=== PATIENT | male | born 1995 | race Caucasian/White ===

== ENCOUNTER 2016-11-30 09:28 | Emergency (ER) | payer OTHER ==
--- NOTE | 2016-11-30 09:30 | PDOC ---
History of Present Illness - General Chief Complaint: Chest Pain Stated Complaint: right sided sharp chest pain Time Seen by Provider: 11/30/16 09:29 History Source: Patient Exam Limitations: No Limitations - History of Present Illness Initial Comments: 11/30/16 09:29 This is an otherwise healthy 21 yo M presenting to the ER with a complaint of right chest pain Pt states his symptoms began 9 days ago He was playing in the park with his friends, she dove to catch a ball and struck his chest Since then, he has had right chest pain which has worsened No fevers No chills no cough Pain is described as sharp, rated 7-8/10, with radiation to the right side of his thorax Pain is worse with certain movements, such as reaching with his arm behind him PMH: denies PSH: denies Meds: denies ALL: dust, pollen, NKDA Social: social alcohol use, denies drugs or cigarettes GENERAL/CONSTITUTIONAL: No: fever, chills, weakness, loss of appetite. HEAD, EYES, EARS, NOSE AND THROAT: No: change in vision, ear pain, discharge, sore throat, throat swelling. CARDIOVASCULAR: Yes: chest wall pain No: lightheadedness, palpitations, syncope RESPIRATORY: No: cough, shortness of breath, wheezing, hemoptysis, stridor. GASTROINTESTINAL: No: nausea, vomiting, diarrhea, abdominal cramping, rectal bleeding, constipation. GENITOURINARY: No: dysuria, hematuria, frequency, urgency, flank pain. MUSCULOSKELETAL: No: back pain, neck pain, joint pain, muscle swelling or pain SKIN AND BREASTS: No: lesions, pallor, rash or easy bruising. NEUROLOGIC: No: headache, vertigo, paresthesias, weakness ENDOCRINE: No: unexplained weight gain or loss HEMATOLOGIC/LYMPHATIC: No: anemia, easy bleeding, swelling nodes. GENERAL: The patient is in no acute distress. HEAD: Normal with no signs of trauma. EYES: PERRLA, EOMI, sclera anicteric, conjunctiva clear. ENT: Ears normal, nares patent, oropharynx clear without exudates. Moist mucous membranes. NECK: Normal range of motion, supple without lymphadenopathy, JVD, or masses. LUNGS: bilateral clear breath sounds HEART:Regular rate and rhythm, normal S1 and S2 without murmur, rub or gallop. ABDOMEN: Soft, nontender, normoactive bowel sounds. No guarding, no rebound. No masses palpable. EXTREMITIES: Normal range of motion, no edema. No clubbing or cyanosis. No erythema, or tenderness. NEUROLOGICAL: Cranial nerves II through XII grossly intact. Normal speech. No focal neurological deficits. MUSCULOSKELETAL: (+) point tenderness right chest wall SKIN: No bruising, no erythema, no lacerations, multiple tattooes 11/30/16 09:37 Past History - Past Medical History Allergies/Adverse Reactions: Allergies Allergy/AdvReac Type Severity Reaction Status Date / Time No Known Allergies Allergy Verified 11/30/16 09:30 Home Medications: Ambulatory Orders Lidocaine 5% Patch [Lidoderm Patch -] 1 patch TP DAILY PRN #30 patch 11/30/16 Methocarbamol [Robaxin -] 500 mg PO TID PRN #21 tablet 11/30/16 Naproxen [Naprosyn -] 500 mg PO BID PRN #14 tablet 11/30/16 - Psycho/Social/Smoking Cessation Hx Anxiety: No Suicidal Ideation: No Smoking Status: No Smoking History: Never smoked Have you smoked in the past 12 months: No Number of Cigarettes Smoked Daily: 0 Hx Alcohol Use: No Substance Use Type: None *Physical Exam - Vital Signs Last Vital Signs Temp Pulse Resp BP Pulse Ox 98.8 F 78 18 124/79 99 11/30/16 09:29 11/30/16 09:29 11/30/16 09:29 11/30/16 09:29 11/30/16 09:29 ED Treatment Course - RADIOLOGY Radiology Studies Ordered: Category Date Time Status CHEST PA & LAT [RAD] Stat Radiology 11/30/16 09:36 Completed RIBS RIGHT SIDE [RAD] Stat Radiology 11/30/16 09:36 Completed - Medications Given in the ED: ED Medications Discontinued Medications Generic Name Dose Route Start Last Admin Trade Name Freq PRN Reason Stop Dose Admin Ibuprofen 600 mg 11/30/16 09:36 11/30/16 09:45 Motrin - PO 11/30/16 09:37 600 mg ONCE ONE Administration Medical Decision Making - Medical Decision Making 11/30/16 09:40 Pt presents with 1 week chest pain which is worse with movement s/p trauma symptoms most consistent with musculoskeletal pain Given no risk factors, unlikely ACS PERC negative Will do CXR r/o pneumothorax, pleural effusion Will give motrin 11/30/16 09:41 *DC/Admit/Observation/Transfer Diagnosis at time of Disposition: Chest wall pain - Discharge Dispostion Disposition: HOME Condition at time of disposition: Stable Admit: No - Prescriptions Prescriptions: Lidocaine 5% Patch [Lidoderm Patch -] 1 patch TP DAILY PRN #30 patch PRN Reason: Pain Naproxen [Naprosyn -] 500 mg PO BID PRN #14 tablet PRN Reason: Pain Methocarbamol [Robaxin -] 500 mg PO TID PRN #21 tablet PRN Reason: Pain - Patient Instructions Printed Discharge Instructions: DI for Atypical Chest Pain Additional Instructions: Chinmay Thank you for coming in to the ER today Please take Motrin 600mg three times per day Please also take Robaxin as prescribed as needed for pain Please follow up with your primary care physician within 1 week Return to the ER for any other concerns or complaints - Post Discharge Activity Work/School Note: Back to Work
[2016-11-30] MEDS ORDERED: IBUPROFEN 600 MG TABLET (FP) PO ONE ×2 (09:36→09:43)
[2016-11-30 09:38] VITALS: BP 124/79; PULSE 78; TEMP 98.8; BMI 28.7
== END 2016-11-30 11:07 | disposition home or self-care (01) ==
LOC: FER 09:28
DX: R07.89 Other chest pain (principal); W21.03XA Struck by baseball, initial encounter; Y93.64 Activity, baseball; Y92.830 Public park as the place of occurrence of the external cause
CPT/HCPCS: 71020-TC; 71101-TC-RT; 99281-25

== ENCOUNTER 2017-04-25 18:43 | Emergency (ER) | payer OTHER ==
[2017-04-25 19:02] VITALS: BP 147/89; PULSE 78; TEMP 98.7; BMI 28.7
--- NOTE | 2017-04-25 19:18 | PDOC ---
Attending Attestation - Resident Resident Name: Maynor Connolly - ED Attending Attestation I have performed the following: I have examined & evaluated the patient, The case was reviewed & discussed with the resident, I agree w/resident's findings & plan, Exceptions are as noted - HPI HPI: 04/25/17 19:20 21 yo male p/w weakness anfter spening the whole outside playing baseball. He played a couple double headers today and yesterday CC he's having body cramps -no significant PMH plan IVF ,labs ,reassess - Physicial Exam PE: 04/25/17 21:08 21 yo Male in no acute distress, facial sunburn neck supple lungs cta b/l cvs [id number] abd nontender,no rebound extremities from,no cellulitis,no rash neuro axox3,no focal neuro deficits - Medical Decision Making 04/26/17 01:23 pt received IVF and had repeat chemistries which were much improved,pt discharged home
[2017-04-25] MEDS ORDERED: SODIUM CHLORIDE 1,000 ML IV STA ×2 (19:20→20:22)
--- NOTE | 2017-04-25 19:33 | PDOC ---
History of Present Illness - General Chief Complaint: Pain, Acute Stated Complaint: BODY CRAMP. Time Seen by Provider: 04/25/17 19:11 History Source: Patient Exam Limitations: No Limitations - History of Present Illness Initial Comments: 04/25/17 19:21 Patient is a previous healthy 21M who is presenting to the ED today complaining of cramping pain in his back, legs, arms and abdomen. He says that yesterday he played in a baseball double header where he drank alcohol. He had a second double header of baseball today. He denies drinking alcohol today. The high today in [place] was 88F. He denies fevers, chills, nausea, vomiting, traumatic injury, and sick contacts. He denies chest pain. He endorses shortness of breath , but only when he's having a muscle cramp. Past History - Past Medical History Allergies/Adverse Reactions: Allergies Allergy/AdvReac Type Severity Reaction Status Date / Time No Known Allergies Allergy Verified 04/25/17 19:10 Home Medications: Ambulatory Orders NK [No Known Home Medication] 04/25/17 - Suicide/Smoking/Psychosocial Hx Smoking Status: No Smoking History: Never smoked Have you smoked in the past 12 months: No Number of Cigarettes Smoked Daily: 0 Hx Alcohol Use: No Drug/Substance Use Hx: No Substance Use Type: None Review of Systems - Review of Systems Comments:: 04/25/17 19:49 GENERAL/CONSTITUTIONAL: No fever or chills. HEAD, EYES, EARS, NOSE AND THROAT: No change in vision. No sore throat. CARDIOVASCULAR: No chest pain or shortness of breath RESPIRATORY: No cough, wheezing, or hemoptysis. GASTROINTESTINAL: No nausea, vomiting, diarrhea or constipation. GENITOURINARY: No dysuria, frequency, or change in urination. MUSCULOSKELETAL: Positive for cramping pain in legs, arms, back and stomach SKIN: No rash NEUROLOGIC: No headache, vertigo, loss of consciousness, or change in strength/ sensation. ENDOCRINE: No increased thirst. No abnormal weight change HEMATOLOGIC/LYMPHATIC: No anemia, easy bleeding, or history of blood clots. ALLERGIC/IMMUNOLOGIC: No hives or skin allergy. *Physical Exam - Vital Signs Last Vital Signs Temp Pulse Resp BP Pulse Ox 98.7 F 78 18 147/89 100 04/25/17 18:56 04/25/17 18:56 04/25/17 18:56 04/25/17 18:56 04/25/17 19:04 - Physical Exam Comments: 04/25/17 19:50 GENERAL: Awake, alert, and fully oriented, in no acute distress, sunburned face HEAD: No signs of trauma, normocephalic, atraumatic EYES: PERRLA, EOMI, sclera anicteric, conjunctiva clear ENT: Auricles normal inspection, hearing grossly normal, nares patent, oropharynx clear without exudates. Dry mucosa NECK: Normal ROM, supple, no lymphadenopathy, JVD, or masses LUNGS: No distress, speaks full sentences, clear to auscultation bilaterally HEART: Regular rate and rhythm, normal S1 and S2, no murmurs, rubs or gallops, peripheral pulses normal and equal bilaterally. ABDOMEN: Soft, nontender, normoactive bowel sounds. No guarding, no rebound. No masses EXTREMITIES: Normal inspection, Normal range of motion, no edema. No clubbing or cyanosis. NEUROLOGICAL: Cranial nerves II through XII grossly intact. Normal speech, normal gait, no focal sensorimotor deficits SKIN: Warm, Dry, no rashes or lesions noted. ED Treatment Course - LABORATORY CBC & Chemistry Diagram: 04/25/17 21:30 04/25/17 21:30 Medical Decision Making - Medical Decision Making 04/25/17 19:51 21M with no significant medical history here today complaining of body aches. Given physical activity, weather, and alcohol, believe this is likely dehydration causing muscle cramps. Vital signs stable and normal. Will treat with 1L NS. Will evaluate with CBC and CMP. Will re-evaluate after fluids are in. 04/25/17 20:43 Laboratory Tests 04/25/17 04/25/17 19:45 19:45 WBC 15.9 H D Hgb 17.9 H D Hct 52.4 H Plt Count 227 BUN 23 H D Creatinine 1.4 H D Total Bilirubin 1.2 H D AST 41 H D Alkaline Phosphatase 128 H D Total Protein 9.2 H Albumin 5.8 H D CBC shows white count of 16 with hgb of 18. CMP shows elevated Cr and BUN, with elevated tbili, ast, alk phos, total protein and albumin. Believe this is due to volume contraction. Will give 2L and redraw labs. 04/25/17 22:17 Laboratory Tests 04/25/17 04/25/17 21:30 21:30 WBC 14.6 H Hgb 16.3 Hct 47.8 Plt Count 190 BUN 20 H Creatinine 1.1 D Labs improved. Patient continues to feel better. Alert, ambulatory and improved on discharge. Given return precautions, patient expressed understanding. Will discharge with PCP follow up. *DC/Admit/Observation/Transfer Diagnosis at time of Disposition: Dehydration - Discharge Dispostion Disposition: HOME Condition at time of disposition: Good Admit: No - Post Discharge Activity Forms/Work/School Notes: Back to Work
[2017-04-25 20:04] LABS: MCH 27.7 pg (25.7-33.7); MCHC 34.1 g/dl (32.0-35.9); MEAN CELL VOLUME 81.3 fl (80-96); PLATELET COUNT 227 K/MM3 (134-434); RDW 13.6 % (11.9-15.9); WHITE BLOOD COUNT 15.9 K/mm3 (4.0-10.0)
[2017-04-25 20:17] LABS: ALBUMIN 5.8 g/dl (3.4-5.0); ANION GAP 11 (8-16); BILIRUBIN,TOTAL 1.2 mg/dL (0.2-1.0); CALCIUM 10.5 mg/dL (8.5-10.1); CO2 24 mmol/L (21-32); CREATININE 1.4 mg/dL (0.7-1.3); GLUCOSE,RANDOM 100 mg/dL (74-106); SGPT/ALT 65 U/L (12-78); TOT PROT 9.2 g/dl (6.4-8.2)
[2017-04-25 20:18] LABS: ALK PHOS 128 U/L (45-117)
[2017-04-25 20:19] LABS: SGOT/AST 41 U/L (15-37)
[2017-04-25 22:03] LABS: ALBUMIN 4.7 g/dl (3.4-5.0); ANION GAP 4 (8-16); CALCIUM 8.7 mg/dL (8.5-10.1); CO2 27 mmol/L (21-32); CREATININE 1.1 mg/dL (0.7-1.3); GLUCOSE,RANDOM 103 mg/dL (74-106); SGOT/AST 36 U/L (15-37); SGPT/ALT 55 U/L (12-78); TOT PROT 7.6 g/dl (6.4-8.2)
[2017-04-25 22:05] LABS: MCH 28.1 pg (25.7-33.7); MCHC 34.1 g/dl (32.0-35.9); MEAN CELL VOLUME 82.4 fl (80-96); MEAN PLT VOLUME 10.5 fl (7.5-11.1); PLATELET COUNT 190 K/MM3 (134-434); RDW 13.5 % (11.9-15.9); WHITE BLOOD COUNT 14.6 K/mm3 (4.0-10.0)
[2017-04-25 22:13] LABS: ALK PHOS 107 U/L (45-117)
== END 2017-04-25 22:25 | disposition home or self-care (01) ==
LOC: JER 18:43
PROC: 3E0337Z Introduction of Electrolytic and Water Balance Substance into Peripheral Vein, Percutaneous Approach (ICD-10-PCS; principal; 2017-04-25)
DX: E86.0 Dehydration (principal)
CPT/HCPCS: 36415; 80053; 85027; 96360; 96361; 99282-25

== ENCOUNTER 2017-06-24 21:39 | Inpatient (IN) | payer OTHER ==
[2017-06-24] MEDS ORDERED: SODIUM CHLORIDE 1,000 ML IV STA (23:05)
[2017-06-24] MEDS ORDERED: KETOROLAC TROMETHAMINE 30 MG/1 ML VIAL IVPUSH ONE (23:05)
--- NOTE | 2017-06-24 23:12 | PDOC ---
History of Present Illness - General Chief Complaint: Pain, Acute Stated Complaint: JAW PAIN Time Seen by Provider: 06/24/17 21:54 - History of Present Illness Initial Comments: This otherwise healthy 21-year-old man presents with a few day history of worsening pain in the posterior portion of his lower left jaw and sore throat. Recent history notable for removal of all of his wisdom teeth (performed on 06/07). Patient states that procedure went well and he took course of penicillin as prescribed for a few days after the procedure but stopped when he felt well. When the patient began to have pain and swelling in the side of his lower jaw a few days ago, he began taking the penicillin again. Tonight, the patient had difficulty opening his jaw secondary to pain but denies drooling. He has pain with swallowing liquids but has been able to drink fluids today . He has taken ibuprofen for pain this evening without significant relief Patient denies recent exposure to any person with strep throat. No recent history of strep pharyngitis Patient describes previous history of sore throat which resulted in swelling in his throat a few years ago. He was seen in ER in [facility]. He was given antibiotics and pain medication and discharged. He has no history of Peritonsillar abscess requiring drainage. Past History - Past Medical History Allergies/Adverse Reactions: Allergies Allergy/AdvReac Type Severity Reaction Status Date / Time No Known Allergies Allergy Verified 04/25/17 19:10 Home Medications: Ambulatory Orders Ibuprofen 600 mg PO PRN PRN 06/24/17 Penicillin V Potassium [Pen Vee K -] 500 mg PO QID 06/24/17 COPD: No Other medical history: DENIES - Suicide/Smoking/Psychosocial Hx Smoking Status: No Smoking History: Never smoked Have you smoked in the past 12 months: No Number of Cigarettes Smoked Daily: 0 Hx Alcohol Use: No Drug/Substance Use Hx: No Substance Use Type: None Review of Systems - Review of Systems Able to Perform ROS?: Yes Comments:: 12 point review of systems is negative except for what is noted in the history of present illness *Physical Exam - Vital Signs Last Vital Signs Temp Pulse Resp BP Pulse Ox 99.2 F 77 16 130/75 99 06/24/17 21:45 06/24/17 21:45 06/24/17 21:45 06/24/17 21:45 06/24/17 21:45 - Physical Exam Comments: GENERAL: Young adult male, in mild distress secondary to left-sided jaw/throat pain. Speaking in full sentences; no respiratory distress Vital signs as noted HEAD: Normal with no signs of trauma. EYES: PERRLA, EOMI, sclera anicteric, conjunctiva clear. ENT: Ears normal, nares patent, oropharynx/gingival or buccal surfaces not visualized secondary to severe trismus NECK: Normal range of motion, supple without lymphadenopathy, JVD, Tender 3 cm x 3 cm nonfluctuant mass just below the angle of jaw , left side LUNGS: Breath sounds equal, clear to auscultation bilaterally. No wheezes, and no crackles. HEART:Regular rate and rhythm, normal S1 and S2 without murmur, rub or gallop. ABDOMEN:.normal bowel sounds No guarding,tenderness or rebound.No masses No distention. EXTREMITIES: Normal range of motion, no edema. No clubbing or cyanosis. No erythema, or tenderness. NEUROLOGICAL: Cranial nerves II through XII grossly intact. Normal speech. No focal neurological deficits. MUSCULOSKELETAL: Back non-tender to palpation, no CVA tenderness SKIN: Warm, Dry, normal turgor, no rashes or lesions noted. 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 There is overlying soft tissue edema which may represent cellulitis involving the retropharyngeal space. 06/25/17 03:14 Patient has received 3 g of Unasyn IV. He had some relief of pain with 30 mg of Toradol IV initially ,with later recurrence of pain. Patient given 1 mg Dilaudid IV. Because of possibility of abscess versus cellulitis of the left Parapharyngeal area, patient's severe trismus and difficulty in PO hydration, the patient will be admitted for IV antibiotics, IV fluids and analgesia. [facility] and case discussed with JERONIMO Hinojosa. Patient will be admitted observation here at [facility]. If patient needs evaluation by ENT/oral maxillofacial surgery , consultation will be obtained here . If this is not possible, he can be transferred to facility where these services are available. Results and plan discussed with the patient and his mother, who agree to plan. *DC/Admit/Observation/Transfer Diagnosis at time of Disposition: Parapharyngeal abscess - Discharge Dispostion Condition at time of disposition: Stable Admit: Yes - Referrals - Patient Instructions - Post Discharge Activity
[2017-06-24] MEDS ORDERED: KETOROLAC TROMETHAMINE 30 MG/1 ML VIAL ONE (23:20)
[2017-06-24 23:30] LABS: BASOPHIL 2.7 % (0-2.0); EOSINOPHIL 0.3 % (0-4.5); MCH 28.5 pg (25.7-33.7); MCHC 34.6 g/dl (32.0-35.9); MEAN CELL VOLUME 82.4 fl (80-96); NEUTROPHILS 80.5 % (42.8-82.8); PLATELET COUNT 229 K/MM3 (134-434); RDW 12.7 % (11.9-15.9); WHITE BLOOD COUNT 17.7 K/mm3 (4.0-10.8)
[2017-06-24 23:51] LABS: ALBUMIN 4.5 g/dl (3.5-5.0); ALK PHOS 120 U/L (32-92); ANION GAP 7 (8-16); BILIRUBIN,TOTAL 1.2 mg/dl (0.2-1.0); CALCIUM 9.5 mg/dl (8.4-10.2); CO2 27 mmol/L (22-28); CREATININE 0.8 mg/dl (0.6-1.3); GLUCOSE,RANDOM 105 mg/dl (74-106); SGOT/AST 40 U/L (10-42); SGPT/ALT 62 U/L (10-40); TOT PROT 7.2 g/dl (6.4-8.3)
[2017-06-25] MEDS ORDERED: AMPICILLIN NA/SULBACTAM NA 3 GM in SODIUM CHLORIDE 100 ML IVPB ONE (02:16)
[2017-06-25] MEDS ORDERED: AMPICILLIN NA/SULBACTAM NA 3 GM VIAL ONE (02:18)
[2017-06-25] MEDS ORDERED: HYDROmorphone HCL CARPU-JECT 1 MG/1 ML DISP.SYRIN IVPUSH ONE ×3 (02:57→06:32)
[2017-06-25] MEDS ORDERED: HYDROmorphone HCL CARPU-JECT 1 MG/1 ML DISP.SYRIN ONE (02:58)
[2017-06-25 04:29] VITALS: BMI 27.4
[2017-06-25 08:43] LABS: MCH 28.3 pg (25.7-33.7); MCHC 33.9 g/dl (32.0-35.9); MEAN CELL VOLUME 83.5 fl (80-96); MEAN PLT VOLUME 10.6 fl (7.5-11.1); PLATELET COUNT 203 K/MM3 (134-434); RDW 12.4 % (11.9-15.9); WHITE BLOOD COUNT 18.2 K/mm3 (4.0-10.8)
[2017-06-25] MEDS ORDERED: AMPICILLIN NA/SULBACTAM NA 3 GM/100 ML BAG IVPB SCH ×2 (09:00→15:00)
[2017-06-25 09:08] LABS: ANION GAP 9 (8-16); CALCIUM 8.9 mg/dl (8.4-10.2); CO2 25 mmol/L (22-28); CREATININE 0.7 mg/dl (0.6-1.3); GLUCOSE,RANDOM 96 mg/dl (74-106)
[2017-06-25] MEDS ORDERED: HEPARIN NA (PORCINE) 5,000 UNITS/ML 1ML VIAL SQ SCH (10:00)
[2017-06-25] MEDS ORDERED: morphine CARPU-JECT 2 MG/1 ML DISP.SYRIN ONE (10:31)
--- NOTE | 2017-06-25 10:32 | PN ---
Progress Note (short form) - Note Progress Note: ID Consult dictated
[2017-06-25 10:34] LABS: PLATELET ESTIMATE ADEQUATE
--- NOTE | 2017-06-25 10:36 | PN ---
Progress Note (short form) - Note Progress Note: ID Consult dictated L submandibular abscess s/p dental extraction Leukocytosis possible sepsis Obtain blood c/s Sonogram neck R/O jugular vein thrombosis Stat ENT consult Empiric Unasyn Discussed with hospitalist
[2017-06-25] MEDS ORDERED: SODIUM CHLORIDE 1,000 ML IV STA ×2 (10:46→10:57)
[2017-06-25] MEDS: morphine CARPU-JECT 2 MG/1 ML DISP.SYRIN IVPUSH STA ×2 (10:50→12:45)
--- NOTE | 2017-06-25 11:03 | DS ---
Physical Exam: SUBJECTIVE: Patient seen and examined OBJECTIVE: Vital Signs Period Temp Pulse Resp BP Sys/Valdez Pulse Ox Last 24 Hr 98.4 F-99.2 F 77-82 16-18 130-148/73-79 99-100 PHYSICAL EXAM GENERAL: The patient is awake, alert, and fully oriented, in no acute distress. HEAD: Normal with no signs of trauma. EYES: PERRL, extraocular movements intact, sclera anicteric, conjunctiva clear. ENT: Ears normal, nares patent, oropharynx clear without exudates, moist mucous membranes. NECK: Trachea midline, full range of motion, supple. LUNGS: Breath sounds equal, clear to auscultation bilaterally, no wheezes, no crackles, no accessory muscle use. HEART: Regular rate and rhythm, S1, S2 without murmur, rub or gallop. ABDOMEN: Soft, nontender, nondistended, normoactive bowel sounds, no guarding, no rebound, no hepatosplenomegaly, no masses. EXTREMITIES: 2+ pulses, warm, well-perfused, no edema. NEUROLOGICAL: Cranial nerves II through XII grossly intact. Normal speech, gait not observed. PSYCH: Normal mood, normal affect. SKIN: Warm, dry, normal turgor, no rashes or lesions noted. LABS Laboratory Results - last 24 hr 06/24/17 06/24/17 06/24/17 23:19 23:19 23:19 WBC 17.7 H RBC 4.37 Hgb 12.5 Hct 36.0 MCV 82.4 MCH 28.5 MCHC 34.6 RDW 12.7 Plt Count 229 MPV 10.0 Neutrophils % 80.5 Neutrophils % (Manual) Band Neutrophils % Lymphocytes % 9.6 Lymphocytes % (Manual) Monocytes % 6.9 Monocytes % (Manual) Eosinophils % 0.3 Basophils % 2.7 H Platelet Estimate Sodium 135 L Potassium 3.7 Chloride 101 Carbon Dioxide 27 Anion Gap 7 L BUN 11 Creatinine 0.8 Creat Clearance w eGFR > 60 Random Glucose 105 Calcium 9.5 Total Bilirubin 1.2 H AST 40 ALT 62 H Alkaline Phosphatase 120 H Total Protein 7.2 Albumin 4.5 Lipase 18 L 06/25/17 06/25/17 07:15 07:15 WBC 18.2 H RBC 4.03 Hgb 11.4 L Hct 33.6 L MCV 83.5 MCH 28.3 MCHC 33.9 RDW 12.4 Plt Count 203 MPV 10.6 Neutrophils % No Result Required. Neutrophils % (Manual) 77.0 Band Neutrophils % 2.0 Lymphocytes % No Result Required. Lymphocytes % (Manual) 11.0 Monocytes % Monocytes % (Manual) 10 Eosinophils % Basophils % Platelet Estimate Adequate Sodium 137 Potassium 4.3 Chloride 103 Carbon Dioxide 25 Anion Gap 9 BUN 8 D Creatinine 0.7 Creat Clearance w eGFR Random Glucose 96 Calcium 8.9 Total Bilirubin AST ALT Alkaline Phosphatase Total Protein Albumin Lipase HOSPITAL COURSE: Date of Admission:06/25/17 Date of Discharge: 06/25/17 Minutes to complete discharge: 35 Discharge Summary Reason For Visit: JAW PAIN Current Active Problems Parapharyngeal abscess (Acute) Condition: Stable - Instructions - Home Medications Comprehensive Discharge Medication List: Ambulatory Orders Ibuprofen 600 mg PO PRN PRN 06/24/17 Penicillin V Potassium [Pen Vee K -] 500 mg PO QID 06/24/17 This patient is new to me today: Yes Date on this admission: 06/25/17 Emergency Visit: Yes ED Registration Date: 06/25/17 Care time: The patient presented to the Emergency Department on the above date and was hospitalized for further evaluation of their emergent condition. Critical Care patient: Yes Total Critical Care Time (in minutes): 60 Critical Care Statement: The care of this patient involved high complexity decision making to prevent further life threatening deterioration of the patient 's condition and/or to evaluate & treat vital organ system(s) failure or risk of failure.
--- NOTE | 2017-06-25 11:03 | HP ---
CHIEF COMPLAINT: Left side face/neck pain and swelling PCP: None HISTORY OF PRESENT ILLNESS: 21 year-old male with no significant PMH had four wisdom teeth removed on at [facility]. He does not know name of oral surgeon. He was given 14- day course of penicillin. He took the medication for 12 days. On Wednesday, 06/21, he began to have pain on the left side. Over the course of the past four days the pain became worse. Yesterday the left side of his face began to swell and by last night he could no longer swallow. As of this morning he cannot open his mouth, he cannot swallow his saliva. Patient reports onset of chills last night. ER course was notable for: (1) CT soft tissue neck: left submandibular gland collection (2) WBC 17k (3) Unasyn x 2; NS 1L bolus x 1 Recent Travel: No PAST MEDICAL HISTORY: None PAST SURGICAL HISTORY: Humphrey teeth extraction (4) on 06/07/17 Social History: Smoking: no Alcohol: social Drugs: no Family History: mother, father, brother, sister a&w Allergies No Known Allergies Allergy (Verified 04/25/17 19:10) HOME MEDICATIONS: Home Medications Medication Instructions Recorded Ibuprofen 600 mg PO PRN PRN 06/24/17 Penicillin V Potassium [Pen Vee K 500 mg PO QID 06/24/17 -] REVIEW OF SYSTEMS CONSTITUTIONAL: Present: chills Absent: chills, diaphoresis, generalized weakness, malaise, loss of appetite, weight change HEENT: Present: left sided facial pain and swelling, throat pain, inability to swallow , trismus Absent: rhinorrhea, nasal congestion, throat swelling, ear pain, eye pain, visual changes CARDIOVASCULAR: Absent: chest pain, syncope, palpitations, irregular heart rate, lightheadedness , peripheral edema RESPIRATORY: Absent: cough, shortness of breath, dyspnea with exertion, orthopnea, wheezing, stridor, hemoptysis GASTROINTESTINAL: Absent: abdominal pain, abdominal distension, nausea, vomiting, diarrhea, constipation, melena, hematochezia GENITOURINARY: Absent: dysuria, frequency, urgency, hesitancy, hematuria, flank pain, genital pain MUSCULOSKELETAL: Absent: myalgia, arthralgia, joint swelling, back pain, neck pain SKIN: Absent: rash, itching, pallor HEMATOLOGIC/IMMUNOLOGIC: Absent: easy bleeding, easy bruising, lymphadenopathy, frequent infections ENDOCRINE: Absent: unexplained weight gain, unexplained weight loss, heat intolerance, cold intolerance NEUROLOGIC: Absent: headache, focal weakness or paresthesias, dizziness, unsteady gait, seizure, mental status changes, bladder or bowel incontinence PSYCHIATRIC: Absent: anxiety, depression, suicidal or homicidal ideation, hallucinations. PHYSICAL EXAMINATION Vital Signs - 24 hr 06/24/17 06/25/17 06/25/17 21:45 02:30 03:15 Temperature 99.2 F 98.9 F 98.4 F Pulse Rate 77 82 Pulse Rate [ 79 Radial] Respiratory 16 16 18 Rate Blood Pressure 130/75 140/73 Blood Pressure 148/79 [Arm] O2 Sat by Pulse 99 100 Oximetry (%) 06/25/17 06/25/17 03:17 06:49 Temperature 98.8 F Pulse Rate 79 Pulse Rate [ Radial] Respiratory 18 Rate Blood Pressure 138/78 Blood Pressure [Arm] O2 Sat by Pulse 100 Oximetry (%) GENERAL: Awake, alert, and fully oriented, in mild distress secondary to pain HEAD: Left-sided facial swelling EYES: Pupils equal, round and reactive to light, extraocular movements intact, sclera anicteric, conjunctiva clear. No ptosis. EARS, NOSE, THROAT: Unable to visualize mouth or oral pharynx; no drooling; no hoarseness; impaired articulation secondary to trismus NECK: Restricted ROM due to pain and swelling LUNGS: Breath sounds equal, clear to auscultation bilaterally. No wheezes, and no crackles. No accessory muscle use. HEART: Regular rate and rhythm, normal S1 and S2 without murmur, rub or gallop. ABDOMEN: Soft, nontender, not distended, normoactive bowel sounds, no guarding, no rebound, no masses. MUSCULOSKELETAL: Normal range of motion at all joints. No bony deformities or tenderness. No CVA tenderness. UPPER EXTREMITIES: 2+ pulses, warm, well-perfused. No cyanosis. No clubbing. No peripheral edema. LOWER EXTREMITIES: 2+ pulses, warm, well-perfused. No calf tenderness. No peripheral edema. NEUROLOGICAL: Cranial nerves II-XII intact. PSYCHIATRIC: Cooperative. Good eye contact. Appropriate mood and affect. SKIN: Warm, dry, normal turgor Laboratory Results - last 24 hr 06/24/17 06/24/17 06/24/17 23:19 23:19 23:19 WBC 17.7 H RBC 4.37 Hgb 12.5 Hct 36.0 MCV 82.4 MCH 28.5 MCHC 34.6 RDW 12.7 Plt Count 229 MPV 10.0 Neutrophils % 80.5 Neutrophils % (Manual) Band Neutrophils % Lymphocytes % 9.6 Lymphocytes % (Manual) Monocytes % 6.9 Monocytes % (Manual) Eosinophils % 0.3 Basophils % 2.7 H Platelet Estimate Sodium 135 L Potassium 3.7 Chloride 101 Carbon Dioxide 27 Anion Gap 7 L BUN 11 Creatinine 0.8 Creat Clearance w eGFR > 60 Random Glucose 105 Calcium 9.5 Total Bilirubin 1.2 H AST 40 ALT 62 H Alkaline Phosphatase 120 H Total Protein 7.2 Albumin 4.5 Lipase 18 L 06/25/17 06/25/17 07:15 07:15 WBC 18.2 H RBC 4.03 Hgb 11.4 L Hct 33.6 L MCV 83.5 MCH 28.3 MCHC 33.9 RDW 12.4 Plt Count 203 MPV 10.6 Neutrophils % No Result Required. Neutrophils % (Manual) 77.0 Band Neutrophils % 2.0 Lymphocytes % No Result Required. Lymphocytes % (Manual) 11.0 Monocytes % Monocytes % (Manual) 10 Eosinophils % Basophils % Platelet Estimate Adequate Sodium 137 Potassium 4.3 Chloride 103 Carbon Dioxide 25 Anion Gap 9 BUN 8 D Creatinine 0.7 Creat Clearance w eGFR Random Glucose 96 Calcium 8.9 Total Bilirubin AST ALT Alkaline Phosphatase Total Protein Albumin Lipase ASSESSMENT/PLAN 21 year-old male with no significant PMH admitted for sepsis secondary to left submandibular abscess s/p wisdom teeth extraction. Sepsis secondary to left submandibular abscess --four wisdom teeth extracted 06/07/17; completed 12 out of 14 days of PO penicillin --presents with left-sided facial swelling, pain, trismus, inability to swallow; no drooling --WBC 18.2k; fever 100.4 --Preliminary findings of soft tissue CT of the neck by Imaging information technology architect: Left sided parapharyngeal space edema with somewhat ill-defined 2.4 by 1.6 cm enhancing fluid collection within the swollen left submandibular gland; no stones identified; overlying soft tissue edema which may represent cellulitis involving the retropharyngeal space. --received 1L bolus in ED, two additional boluses ordered and running --Unasyn started in ED x 2 doses --hemodynamically stable at this time --transfer to [facility] NPO Visit type - Emergency Visit Emergency Visit: Yes ED Registration Date: 06/25/17 Care time: The patient presented to the Emergency Department on the above date and was hospitalized for further evaluation of their emergent condition. - New Patient This patient is new to me today: Yes Date on this admission: 06/25/17 - Critical Care Critical Care patient: Yes Total Critical Care Time (in minutes): 50 Critical Care Statement: The care of this patient involved high complexity decision making to prevent further life threatening deterioration of the patient 's condition and/or to evaluate & treat vital organ system(s) failure or risk of failure.
[2017-06-25 11:40] LABS: BASOPHIL 3.9 % (0-2.0); EOSINOPHIL 0.1 % (0-4.5); MCH 27.7 pg (25.7-33.7); MCHC 33.3 g/dl (32.0-35.9); MEAN PLT VOLUME 10.1 fl (7.5-11.1); NEUTROPHILS 81.5 % (42.8-82.8); PLATELET COUNT 239 K/MM3 (134-434); RDW 12.4 % (11.9-15.9); WHITE BLOOD COUNT 18.9 K/mm3 (4.0-10.8)
--- NOTE | 2017-06-25 11:52 | DS ---
Physical Exam: SUBJECTIVE: Patient seen and examined OBJECTIVE: Vital Signs Period Temp Pulse Resp BP Sys/Valdez Pulse Ox Last 24 Hr 98.4 F-100.4 F 77-88 16-18 130-148/73-79 98-100 PHYSICAL EXAM GENERAL: The patient is awake, alert, and fully oriented, in no acute distress. HEAD: Normal with no signs of trauma. EYES: PERRL, extraocular movements intact, sclera anicteric, conjunctiva clear. ENT: Ears normal, nares patent, oropharynx clear without exudates, moist mucous membranes. NECK: Trachea midline, full range of motion, supple. LUNGS: Breath sounds equal, clear to auscultation bilaterally, no wheezes, no crackles, no accessory muscle use. HEART: Regular rate and rhythm, S1, S2 without murmur, rub or gallop. ABDOMEN: Soft, nontender, nondistended, normoactive bowel sounds, no guarding, no rebound, no hepatosplenomegaly, no masses. EXTREMITIES: 2+ pulses, warm, well-perfused, no edema. NEUROLOGICAL: Cranial nerves II through XII grossly intact. Normal speech, gait not observed. PSYCH: Normal mood, normal affect. SKIN: Warm, dry, normal turgor, no rashes or lesions noted. LABS Laboratory Results - last 24 hr 06/24/17 06/24/17 06/24/17 23:19 23:19 23:19 WBC 17.7 H RBC 4.37 Hgb 12.5 Hct 36.0 MCV 82.4 MCH 28.5 MCHC 34.6 RDW 12.7 Plt Count 229 MPV 10.0 Neutrophils % 80.5 Neutrophils % (Manual) Band Neutrophils % Lymphocytes % 9.6 Lymphocytes % (Manual) Monocytes % 6.9 Monocytes % (Manual) Eosinophils % 0.3 Basophils % 2.7 H Platelet Estimate Sodium 135 L Potassium 3.7 Chloride 101 Carbon Dioxide 27 Anion Gap 7 L BUN 11 Creatinine 0.8 Creat Clearance w eGFR > 60 Random Glucose 105 Calcium 9.5 Total Bilirubin 1.2 H AST 40 ALT 62 H Alkaline Phosphatase 120 H Total Protein 7.2 Albumin 4.5 Lipase 18 L 06/25/17 06/25/17 06/25/17 07:15 07:15 11:31 WBC 18.2 H 18.9 H RBC 4.03 4.14 Hgb 11.4 L 11.4 L Hct 33.6 L 34.4 L MCV 83.5 83.0 MCH 28.3 27.7 MCHC 33.9 33.3 RDW 12.4 12.4 Plt Count 203 239 MPV 10.6 10.1 Neutrophils % No Result Required. 81.5 Neutrophils % (Manual) 77.0 Band Neutrophils % 2.0 Lymphocytes % No Result Required. 5.5 L D Lymphocytes % (Manual) 11.0 Monocytes % 9.0 Monocytes % (Manual) 10 Eosinophils % 0.1 Basophils % 3.9 H Platelet Estimate Adequate Sodium 137 Potassium 4.3 Chloride 103 Carbon Dioxide 25 Anion Gap 9 BUN 8 D Creatinine 0.7 Creat Clearance w eGFR Random Glucose 96 Calcium 8.9 Total Bilirubin AST ALT Alkaline Phosphatase Total Protein Albumin Lipase HOSPITAL COURSE: Date of Admission:06/25/17 Date of Discharge: 06/25/17 Pre hospital course 21 year-old male with no significant PMH had four wisdom teeth removed on at [facility]. He does not know name of oral surgeon. He was given 14- day course of penicillin. He took the medication for 12 days. On Wednesday, 06/21, he began to have pain on the left side. Over the course of the past four days the pain became worse. Yesterday the left side of his face began to swell and by last night he could no longer swallow. As of this morning he cannot open his mouth, he cannot swallow his saliva. Patient reports onset of chills last night. ER course (1) CT soft tissue neck: left submandibular gland collection (2) WBC 17k (3) Unasyn x 2; NS 1L bolus x 1 Subsequent hospital course Sepsis secondary to left submandibular abscess --four wisdom teeth extracted 06/07/17; completed 12 out of 14 days of PO penicillin --presents with left-sided facial swelling, pain, trismus, inability to swallow; no drooling --WBC 18.2k; fever 100.4 --Preliminary findings of soft tissue CT of the neck by Imaging information coordinator: Left sided parapharyngeal space edema with somewhat ill-defined 2.4 by 1.6 cm enhancing fluid collection within the swollen left submandibular gland; no stones identified; overlying soft tissue edema which may represent cellulitis involving the retropharyngeal space. --received 1L bolus in ED, two additional boluses ordered and running --Unasyn started in ED x 2 doses --hemodynamically stable at this time --transfer to [facility] NPO Minutes to complete discharge: 35 Discharge Summary Reason For Visit: JAW PAIN Current Active Problems Parapharyngeal abscess (Acute) Condition: Stable - Instructions - Home Medications Comprehensive Discharge Medication List: Ambulatory Orders Ibuprofen 600 mg PO PRN PRN 06/24/17 Penicillin V Potassium [Pen Vee K -] 500 mg PO QID 06/24/17 This patient is new to me today: Yes Date on this admission: 06/25/17 Emergency Visit: Yes ED Registration Date: 06/25/17 Care time: The patient presented to the Emergency Department on the above date and was hospitalized for further evaluation of their emergent condition. Critical Care patient: Yes Total Critical Care Time (in minutes): 45 Critical Care Statement: The care of this patient involved high complexity decision making to prevent further life threatening deterioration of the patient 's condition and/or to evaluate & treat vital organ system(s) failure or risk of failure. - Discharge Referral Referred to [facility] Med P.C.: No
[2017-06-25] MEDS ORDERED: SODIUM CHLORIDE 1,000 ML IV SCH (12:00)
[2017-06-25 12:17] VITALS: BP 134/78; PULSE 90; TEMP 99.4
--- NOTE | 2017-06-25 12:41 | CONS ---
DATE OF CONSULTATION: DATE OF DICTATION: 06/25/2017 INFECTIOUS DISEASE CONSULTATION HISTORY OF PRESENT ILLNESS: Patient is a 21-year-old male who was evaluated for neck abscess. Patient is a previously healthy 21-year-old who was admitted to the hospital on June 25, 2017, with left jaw pain and sore throat. The patient had undergone extraction of multiple wisdom teeth on June 07, 2017. He was prescribed penicillin V potassium. He reports developing worsening left jaw pain and swelling associated with sore throat. He presented to the emergency room where a CAT scan of the neck showed a left parapharyngeal space edema with a 2.4 x 1.6 cm fluid collection in the left submandibular gland. No blood cultures were obtained. He was empirically treated with Unasyn. A throat culture was obtained and was negative for group A streptococcus antigen. His course was complicated by markedly elevated white blood cell count. ENT was consulted. The patient denies any respiratory compromise. He has had no stridor or wheeze. He has been afebrile. PAST MEDICAL HISTORY: Negative. ALLERGIES: No known allergies. MEDICATIONS: Include Unasyn, hydromorphone. SOCIAL HISTORY: He lives at home. He is a nonsmoker, nondrinker. No history of illicit drug use. REVIEW OF SYSTEMS: Neurologic: No loss of consciousness, seizure activity, focal weakness. Cardiac: Negative chest pain or palpitations. Respiratory: Negative cough or sputum production. No stridor or wheeze. Gastrointestinal: Negative vomiting or diarrhea. Genitourinary: Negative for urinary tract infection. LABORATORY DATA: White count 18.2, hematocrit 33.6, platelet count 203. BUN 8, creatinine 0.7. CAT scan as described. PHYSICAL EXAMINATION: General: He is awake and alert. He is in no acute distress. His breathing is nonlabored. Vital Signs: Temperature 98.8, blood pressure 138/78, pulse 79 and regular, respirations 18 per minute. HEENT: Sclerae anicteric. Head and Neck: There was marked soft tissue swelling involving the left submandibular area. It is exquisitely tender to palpation. It is warm to touch. Unable to examine the oral cavity as patient was unable to fully open his mouth. Neck: Supple. Heart: Sounds S1, S2. Lungs: No stridor or wheeze. Abdomen: Soft and nontender. Extremities: Negative for edema. IMPRESSION: 1. Left submandibular abscess status post dental extraction. 2. Leukocytosis, possible sepsis. PLAN: Obtain blood cultures, sonogram of the right neck to result out suppurative thrombophlebitis of the jugular vein. STAT ENT consult. Empiric coverage mouth michael with Unasyn 3 g IV piggyback every 6 hours. Analgesics. Monitor respiratory status. Case was discussed with hospitalist. Thank you for the kind referral. CHENG BARNARD M.D. [id number]
--- NOTE | 2017-06-26 16:31 | EKG ---
Test Reason : Blood Pressure : / mmHG Vent. Rate : 099 BPM Atrial Rate : 099 BPM P-R Int : 158 ms QRS Dur : 088 ms QT Int : 352 ms P-R-T Axes : 031 078 036 degrees QTc Int : 451 ms NORMAL SINUS RHYTHM NORMAL ECG NO PREVIOUS ECGS AVAILABLE Confirmed by NICOLE CASTLE MD ([id number]) on 06/26/2017 4:31:07 PM Referred By: SAM HOFFMAN Confirmed By:NICOLE CASTLE MD
== END 2017-06-25 12:53 | disposition short-term general hospital (02) | DRG 720 ==
LOC: FER 21:39 → FM/S 06-25 03:17 → OBSVTOIN 06-25 10:52
PROVIDERS: ADMIT Internal Medicine; ATTEND Nurse Practitioner Acute Care
DX: A41.9 Sepsis, unspecified organism (principal); R13.10 Dysphagia, unspecified; J39.0 Retropharyngeal and parapharyngeal abscess
CPT/HCPCS: 36415; 70491-TC; 71010-TC; 80048; 80053; 83690; 85025; 87040; 87070; 87086; 87430; 93005; 99283-25; G0378; J1644

== ENCOUNTER 2017-12-30 21:08 | Emergency (ER) | payer OTHER ==
[2017-12-30 21:21] VITALS: BP 129/83; PULSE 58; TEMP 99.3; BMI 28.4
--- NOTE | 2017-12-30 22:28 | PDOC ---
History of Present Illness - General Chief Complaint: Pain Stated Complaint: LEFT JAW PAIN Time Seen by Provider: 12/30/17 21:11 - History of Present Illness Initial Comments: This 22-year-old man presents with a 2 day history of left-sided lower jaw pain. Past medical history significant for left sided dental abscess after lower jaw wisdom tooth extraction in June,. Patient was admitted here but subsequently transferred to [facility] for definitive incision and drainage of the abscess. Patient states that after the drainage, he was maintained on antibiotics for a few weeks. He then had no further pain in the area until yesterday when he noted recurrence of the pain. He has had some pain in the left lower jaw teeth in the last 24 hours with pain extending to the submandibular region and to left ear. He denies fever/chills. He has been taking ibuprofen for pain. No other new symptoms; he denies difficulty swallowing. Past History - Past Medical History Allergies/Adverse Reactions: Allergies Allergy/AdvReac Type Severity Reaction Status Date / Time No Known Allergies Allergy Verified 10/01/17 19:21 Home Medications: Ambulatory Orders Clindamycin [Cleocin -] 300 mg PO Q6HPO #28 capsule 12/30/17 Ibuprofen [Advil -] 400 mg PO TID PRN 12/30/17 Oxycodone HCl/Acetaminophen [Percocet 5-325 mg Tablet] 1 tab PO Q6H PRN #6 tablet MDD 2 tabs 12/30/17 COPD: No - Immunization History Immunization Up to Date: Yes - Suicide/Smoking/Psychosocial Hx Smoking Status: No Smoking History: Never smoked Have you smoked in the past 12 months: No Number of Cigarettes Smoked Daily: 0 Information on smoking cessation initiated: No Hx Alcohol Use: No Drug/Substance Use Hx: No Substance Use Type: None Review of Systems - Review of Systems Able to Perform ROS?: Yes Comments:: 12 point review of systems is negative except for what is noted in the history of present illness *Physical Exam - Vital Signs Last Vital Signs Temp Pulse Resp BP Pulse Ox 99.3 F 58 L 16 129/83 100 12/30/17 21:10 12/30/17 21:10 12/30/17 21:10 12/30/17 21:10 12/30/17 21:10 - Physical Exam Comments: GENERAL: Young adult male, alert and oriented 3, in mild distress secondary to left-sided jaw pain HEAD: Normal with no signs of trauma. EYES: PERRLA, EOMI, sclera anicteric, conjunctiva clear. ENT: Ears normal, nares patent, oropharynx clear without exudates or edema. Moist mucous membranes. No evidence of edema, erythema or tenderness of periapical regions of the left lower teeth No trismus or drooling NECK: Normal range of motion, supple . Mild fullness/mild tenderness left submandibular region; no fluctuance noted NEUROLOGICAL: Cranial nerves II through XII grossly intact. Normal speech. No focal neurological deficits. SKIN: Warm, Dry, normal turgor, no rashes or lesions noted. Medical Decision Making - Medical Decision Making This 22-year-old man with a past history of left sided pharyngeal abscess secondary to wisdom tooth extraction approximately 6 months ago presents with 1 day history of pain in the area of the incision and drainage. On exam, the patient has no clear dental abscess present although he does have fullness in the left submandibular region. This area is also mildly tender without fluctuance. Because of his past history of abscess, the patient will be started on clindamycin 300 mg every 6 hours. A loading dose of 450 mg by mouth given here in the emergency room. Patient states although he has not followed up with the dentist who drained the abscess 6 months ago, he has referral information him at home. Patient strongly urged to arrange follow-up with him, calling office tomorrow. If the patient has worsening pain or develops high fever/worsening swelling, he should follow-up in the emergency room (probably best at [facility], since patient was transferred there for definitive oral surgical care ) *DC/Admit/Observation/Transfer Diagnosis at time of Disposition: Pain in lower jaw - Discharge Dispostion Disposition: HOME Condition at time of disposition: Stable - Prescriptions Prescriptions: Clindamycin [Cleocin -] 300 mg PO Q6HPO #28 capsule Oxycodone HCl/Acetaminophen [Percocet 5-325 mg Tablet] 1 tab PO Q6H PRN #6 tablet MDD 2 tabs PRN Reason: Severe Pain - Referrals - Patient Instructions Printed Discharge Instructions: DI for Dental Pain Additional Instructions: Clindamycin 300 mg every 6 hours until seen by your dentist Ibuprofen/naproxen/acetaminophen for [id number] pain Percocet 5/325 up to twice a day as needed for severe pain (this medication will make you sleepy) Call the dentist who treated you at [facility] tomorrow for follow-up Return to ER if you have more severe pain/fever/increased swelling - Post Discharge Activity
[2017-12-30] MEDS ORDERED: CLINDAMYCIN HCL 150 MG CAPSULE (FP) PO ONE (23:10)
[2017-12-30] MEDS ORDERED: CLINDAMYCIN HCL 150 MG CAPSULE (FP) ONE (23:14)
== END 2017-12-30 23:27 | disposition home or self-care (01) ==
LOC: FER 21:08
DX: R68.84 Jaw pain (principal)
CPT/HCPCS: 99281-25

== ENCOUNTER 2018-12-18 19:02 | Emergency (ER) | payer OTHER ==
[2018-12-18 19:08] VITALS: BP 127/76; PULSE 67; TEMP 98.1; BMI 27.2
[2018-12-18] MEDS ORDERED: DIPHTH,PERTUSS(ACELL),TET 0.5 ML DISP.SYRIN IM ONE ×2 (19:24→19:28)
[2018-12-18] MEDS ORDERED: BACITRACIN 15 GM TUBE TOPICAL OINTMENT TP ONE (19:24)
[2018-12-18] MEDS ORDERED: BACITRACIN 15 GM TUBE TOPICAL OINTMENT ONE (19:28)
--- NOTE | 2018-12-18 19:28 | PDOC ---
History of Present Illness - General Chief Complaint: Laceration Stated Complaint: LACERATION Time Seen by Provider: 12/18/18 19:17 History Source: Patient Exam Limitations: No Limitations - History of Present Illness Initial Comments: 12/18/18 20:05 Patient states crushed right second digit tip in car door sustaining a laceration to the middle and distal phalanx at DIP. Timing/Duration: reports: just prior to arrival Severity: Yes: mild, moderate Location: reports: extremities Associated Symptoms: reports: denies symptoms Past History - Travel Traveled outside of the country in the last 30 days: No Close contact w/someone who was outside of country & ill: No - Past Medical History Allergies/Adverse Reactions: Allergies Allergy/AdvReac Type Severity Reaction Status Date / Time No Known Allergies Allergy Verified 12/18/18 19:07 Home Medications: Ambulatory Orders Clindamycin [Cleocin -] 300 mg PO Q6HPO #28 capsule 12/30/17 Ibuprofen [Advil -] 400 mg PO TID PRN 12/30/17 Oxycodone HCl/Acetaminophen [Percocet 5-325 mg Tablet] 1 tab PO Q6H PRN #6 tablet MDD 2 tabs 12/30/17 Cephalexin Monohydrate [Keflex -] 500 mg PO Q8H #15 capsule 12/18/18 COPD: No - Immunization History Immunization Up to Date: Yes - Suicide/Smoking/Psychosocial Hx Smoking Status: No Smoking History: Never smoked Have you smoked in the past 12 months: No Number of Cigarettes Smoked Daily: 0 Hx Alcohol Use: No Drug/Substance Use Hx: No Substance Use Type: None Review of Systems - Review of Systems Able to Perform ROS?: Yes Is the patient limited Dominican proficient: Yes Constitutional: Yes: Symptoms Reported, See HPI Integumentary: Yes: Symptoms Reported, See HPI, Bruising Neurological: No: Symptoms reported All Other Systems: Reviewed and Negative *Physical Exam - Vital Signs Last Vital Signs Temp Pulse Resp BP Pulse Ox 98.1 F 67 18 127/76 99 12/18/18 19:05 12/18/18 19:05 12/18/18 19:05 12/18/18 19:05 12/18/18 19:05 - Physical Exam General Appearance: Yes: Nourished, Appropriately Dressed, Apparent Distress, Mild Distress HEENT: positive: ELISA, Normal ENT Inspection, Normal Voice, TMs Normal, Pharynx Normal Neck: positive: Supple. negative: Tender Respiratory/Chest: positive: Lungs Clear Extremity: positive: Normal Capillary Refill, Tender, Other (patient with 2 cm laceration extending from middle phalanx through DIP to distal phalanx of index finger right hand on palmar aspect of finger. Has full range of motion of finger and able to flex and extend proximal and distal phalanx against resistance. Has a contusion to the dorsum of hand at eponychia whenever no true nail involvement noted or bleeding. Sensation is painful but intact to distal digit.. ) Integumentary: positive: Normal Color, Warm, Bruising Neurologic: positive: hoop maker machine II-XII NML intact, Fully Oriented, Alert, Normal Mood/ Affect, Normal Response, Motor Strength 5/5 Progress Note - Progress Note Progress Note: Crush injury, no fractures or dislocations noted in x-ray, suture repair completed by Dr. garcia, patient started on Keflex for 5 days to cover for crush injury and laceration and given first dose 500 mg here, also given 2 tablets of Percocet for tonight pain relief, tetanus/diphtheria/pertussis booster was updated today *DC/Admit/Observation/Transfer Diagnosis at time of Disposition: Laceration of right hand Qualifiers: Encounter type: initial encounter Foreign body presence: without foreign body Qualified Code(s): S61.411A - Laceration without foreign body of right hand, initial encounter - Discharge Dispostion Disposition: HOME Condition at time of disposition: Stable Decision to Admit order: No - Prescriptions Prescriptions: Cephalexin Monohydrate [Keflex -] 500 mg PO Q8H #15 capsule - Referrals Referrals: Marc Jones MD [Primary Care Provider] - - Patient Instructions Printed Discharge Instructions: DI for Laceration Repair Additional Instructions: Rest, elevate, avoid strenuous activity or heavy lifting until sutures are removed Leave dressing on for the next 24 hours, Then may remove dressing gently and wash area with soap and water. Reapply bacitracin ointment and dressing daily for the next 5 days On day #6 keep the wound protected and cover as needed until sutures are removed allowing wound to start to dry May use Tylenol or Motrin for pain relief May use 1-2 percocet tab as needed tonight for severe pain Kefex 1 tab every 8 hours for 5 days Suture removal in : 10-14 Days - Post Discharge Activity Forms/Work/School Notes: Back to Work
[2018-12-18] MEDS ORDERED: CEPHALEXIN MONOHYDRATE 500 MG CAPSULE (UD) ONE (20:30)
[2018-12-18] MEDS ORDERED: CEPHALEXIN MONOHYDRATE 500 MG CAPSULE (UD) PO ONE (20:41)
== END 2018-12-18 20:43 | disposition home or self-care (01) ==
LOC: JERFT 19:02
PROC: 3E0234Z Introduction of Serum, Toxoid and Vaccine into Muscle, Percutaneous Approach (ICD-10-PCS; principal; 2018-12-18)
PROC: 0HQFXZZ Repair Right Hand Skin, External Approach (ICD-10-PCS; 2018-12-18)
DX: S61.210A Laceration without foreign body of right index finger without damage to nail, initial encounter (principal); S67.190A Crushing injury of right index finger, initial encounter; V48.3XXA Unspecified car occupant injured in noncollision transport accident in nontraffic accident, initial encounter; Y92.488 Other paved roadways as the place of occurrence of the external cause; Y93.89 Activity, other specified; Y99.8 Other external cause status
CPT/HCPCS: 12001-25; 73140-TC-RT-FY; 90471; 90715; 99282-25